=== PATIENT | male | born 1980 | race Asian ===

== ENCOUNTER 2018-10-25 17:41 | Emergency (ER) | payer BC ==
[~2018-10-25] VITALS: Ht 172.7 cm; Wt 100.0 kg
[2018-10-25] MEDS ORDERED: SODIUM CHLORIDE 0.9% 1,000 ML IV ONE (18:12)
[2018-10-25 19:04] LABS: BASOPHILS % 0.3 % (0.0-2.0); HEMATOCRIT. 45.9 % (42.0-52.0); LYMPHOCYTES % 26.1 % (20.0-50.0); MEAN CORPUSCULAR VOLUME 83.4 fL (80.0-94.0); MEAN PLATELET VOLUME 8.6 fl (7.4-10.4); MONOCYTES % 4.6 % (2.0-8.0); PLATELET 258 x1000/uL (130-400)
[2018-10-25 19:08] LABS: CHLORIDE 105 mEq/L (98-107)
[2018-10-25 19:09] LABS: PROTHROMBIN TIME 10.7 sec (9.6-11.0)
[2018-10-25 19:12] LABS: CLARITY URINE CLEAR (CLEAR); COLOR URINE YELLOW (YELLOW); KETONES URINE TRACE (NEGATIVE); LEUKOCYTE ESTERASE URINE NEGATIVE (NEGATIVE); NITRITE URINE NEGATIVE (NEGATIVE); OCCULT BLOOD URINE NEGATIVE (NEGATIVE); PROTEIN URINE TRACE (NEGATIVE); SPECIFIC GRAVITY URINE 1.021 (1.005-1.030); UROBILINOGEN URINE 0.2 E.U./dL (0.2-1.0)
[2018-10-25] MEDS ORDERED: POTASSIUM CHLORIDE 20MEQ TABLET SR PO NR (19:45)
[2018-10-25 21:56] VITALS: BP 129/72
== END 2018-10-25 21:58 | disposition home or self-care (01) ==
LOC: ER 17:41
DX: R56.9 Unspecified convulsions (principal); M25.511 Pain in right shoulder; R03.0 Elevated blood-pressure reading, without diagnosis of hypertension; R73.9 Hyperglycemia, unspecified; R74.0 Nonspecific elevation of levels of transaminase and lactic acid dehydrogenase [LDH]; V47.5XXA Car driver injured in collision with fixed or stationary object in traffic accident, initial encounter; Y93.89 Activity, other specified; Y92.411 Interstate highway as the place of occurrence of the external cause
CPT/HCPCS: 36415; 70450; 71045; 73030; 80053; 81003; 83605; 85025; 85610; 99284; J7030